=== PATIENT | female | born 1970 | race Caucasian/White ===

== ENCOUNTER 2016-08-12 11:49 | Outpatient (CLI) | payer OTHER ==
--- NOTE | 2016-08-13 17:33 | Mammography Report ---
DIGITAL SCREENING MAMMOGRAM: 08/12/2016 CLINICAL INDICATION: A 45-year-old with family history of breast cancer, for screening. COMPARISON: 04/2014, 01/2012, 10/2010. TECHNIQUE: Routine CC and MLO projections were obtained of the breasts. FINDINGS: The breasts again demonstrate heterogeneously dense fibroglandular parenchyma bilaterally. A few coarse, typically benign calcifications are present. No suspicious masses, clustered microcalc ifications, or regions of architectural distortion are identified. IMPRESSION: BENIGN FINDINGS. RECOMMENDATION: ROUTINE ANNUAL SCREENING UNLESS OTHERWISE CLINICALLY INDICATED. BIRADS CATEGORY 2-BENIGN FINDINGS. STANDARD QUALIFYING STATEMENTS 1. This examination was reviewed with the aid of Computer-Aided Detection (CAD). 2. A negative or benign imaging report should not delay biopsy if clinically suspicious findings are present. Consider surgical consultation if warranted. More than 5% of cancers are not identified by i maging. 3. Dense breasts may obscure an underlying neoplasm. JOB #: [id number] EXT JOB #:[id number]
== END 2016-08-12 11:50 | disposition home or self-care (01) ==
LOC: DI 11:49
PROVIDERS: ATTEND Physician Assistant Medical
DX: Z12.31 Encounter for screening mammogram for malignant neoplasm of breast (principal); Z80.3 Family history of malignant neoplasm of breast
CPT/HCPCS: 77067

== ENCOUNTER 2018-09-08 15:50 | Emergency (ER) | payer OTHER ==
--- NOTE | 2018-09-08 17:08 | XRAY Report ---
Reason: chest pain after wrestling Procedure Date: 09/08/2018 Accession Number: [id number] / [id number] Procedure: XR - Ribs w/PA Chest LT CPT Code: FULL RESULT: EXAM: LEFT RIB RADIOGRAPHY EXAM DATE: 09/08/2018 04:47 PM. CLINICAL HISTORY: Chest pain after wrestling. COMPARISON: None. TECHNIQUE: 1 view of the chest and 2 views of the ribs. FINDINGS: Bones: Normal. No fracture or bone lesion. Lungs: No focal opacities. No pneumothorax. No pleural effusions. Mediastinum: Heart and mediastinal contours are unremarkable. Other: None. IMPRESSION: No acute displaced rib fractures. No pneumothorax. RADIA
[2018-09-08] MEDS ORDERED: LIDOCAINE PATCH 5% TOP STA (17:19)
[2018-09-08] MEDS ORDERED: KETOROLAC 60 MG/2 ML VIAL IM STA (17:19)
--- NOTE | 2018-09-08 17:22 | ED Physician Documentation ---
History of Present Illness - Stated complaint Stated Complaint: L RIB PAIN - Chief complaint Chief Complaint: General - History obtained from History obtained from: Patient - History of Present Illness Timing: How many weeks ago (1) Severity Comments: moderate Quality: aching, sharp Radiates to: does not radiate Improved by: rest, remaining still Worsened by: deep breathing, movement, palpating Associated symptoms: denies sob, denies abdominal pain. No deformity or bruising - Treatment prior to arrival Treatment prior to arrival: ibuprofen yesterday - Additonal information Additional information: Pt reports she was wrestling with her son last week and elbowed herself in the chest/ribs. Reports still having pain a week later. Review of Systems Ten Systems: 10 systems reviewed and negative Constitutional: denies: Fever Cardiac: reports: Chest pain / pressure. 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 - Present Medications Home Medications: Ambulatory Orders Medication Instructions Recorded Confirmed Varenicline Tartrate [Chantix] 1 tab PO DAILY 08/19/13 08/19/13 Lidocaine Patch 5% [Lidoderm Patch] 1 patch TOP DAILY PRN #10 patch 09/08/18 - Allergies Allergies/Adverse Reactions: Allergies Allergy/AdvReac Type Severity Reaction Status Date / Time bupropion HCl * Allergy Unknown Verified 09/08/18 15:57 [From Wellbutrin] - Social History Does the pt smoke?: No Smoking Status: Former smoker Does the pt drink ETOH?: No Does the pt have substance abuse?: No - Immunizations Immunizations are current?: Yes - POLST Patient has POLST: Yes PD ED PE NORMAL - Vitals Vital signs reviewed: Yes - General General: Alert and oriented X 3, No acute distress, Well developed/nourished - HEENT HEENT: Atraumatic - Neck Neck: Supple, no meningeal sign - Cardiac Cardiac: RRR, No murmur, No gallop, No rub - Respiratory Respiratory: No respiratory distress, Clear bilaterally - Abdomen Abdomen: Soft, Non tender, Non distended - Female Female : Deferred - Rectal Rectal: Deferred - Derm Derm: Normal color, Warm and dry - Extremities Extremities: No deformity - Neuro Neuro: Alert and oriented X 3 Eye Opening: Spontaneous Motor: Obeys Commands Verbal: Oriented GCS Score: 15 - Psych Psych: Normal mood, Normal affect PD ED PE EXPANDED - Cardiac Cardiac: Chest wall TTP (left lateral chest wall, ribs) Results - Vitals Vitals: Vital Signs - 24 hr 09/08/18 15:54 Temperature 36 C L Heart Rate 88 Respiratory 18 Rate Blood Pressure 141/78 H O2 Saturation 97 Oxygen O2 Source Room air - Rads (name of study) Left rib/ cxr Radiology: Final report received (no acute disease or injury ) PD MEDICAL DECISION MAKING - ED course Complexity details: reviewed results, re-evaluated patient, considered differential, d/w patient ED course: ddx- chest wall contusion, chest strain, rib fracture, rib contusion, pneumothorax, hemothorax 47 y/o F with L chest wall pain persisting 1 week after hittting self in L chest wall while wrestling. Mild chest wall tenderness, normal breath sounds and otherwise normal exam, no abdominal pain or tenderness. Normal cxr and rib xray. Continue supportive care with ibuprofen, lidoderm patches and incentive spirometer to prevent pneumonia. Departure - Departure Disposition: 01 Home, Self Care Condition: Stable Record reviewed to determine appropriate education?: Yes Instructions: ED Contusion Chest Wall Follow-Up: Lauren Moser PA-C [Primary Care Provider] - Prescriptions: Lidocaine Patch 5% [Lidoderm Patch] 1 patch TOP DAILY PRN #10 patch PRN Reason: pain Comments: Your xray today was negative for any acute fracture
[2018-09-08 17:46] VITALS: BP 126/84
== END 2018-09-08 17:46 | disposition home or self-care (01) ==
LOC: ED 15:50
DX: Z87.891 Personal history of nicotine dependence (principal); X58.XXXA Exposure to other specified factors, initial encounter; Y93.89 Activity, other specified
CPT/HCPCS: 71101; 96372; 99283; 99284; A9270

== ENCOUNTER 2018-11-22 07:56 | Outpatient (CLI) | payer OTHER ==
[2018-11-22 08:31] LABS: BASOPHILS # (AUTO) 0.1 10^3/uL (0.0-0.1); BASOPHILS % (AUTO) 1.3 %; EOSINOPHILS # (AUTO) 0.3 10^3/uL (0.0-0.7); EOSINOPHILS % (AUTO) 3.8 %; LYMPHOCYTES # (AUTO) 2.2 10^3/uL (1.5-3.5); LYMPHOCYTES % (AUTO) 32.6 %; MEAN CORPUSCULAR HEMOGLOBIN 31.6 pg (27.0-31.0); MEAN CORPUSCULAR HGB CONC 33.7 g/dL (32.0-36.0); MEAN CORPUSCULAR VOLUME 93.9 fL (81.0-99.0); MONOCYTES # (AUTO) 0.7 10^3/uL (0.0-1.0); MONOCYTES % (AUTO) 9.5 %; NEUTROPHILS # (AUTO) 3.6 10^3/uL (1.5-6.6); NEUTROPHILS % (AUTO) 52.7 %; PLT - PLATELET COUNT 258 10^3/uL (130-450); RED BLOOD COUNT 4.11 10^6/uL (4.20-5.40); RED CELL DISTRIBUTION WIDTH 12.4 % (12.0-15.0); WHITE BLOOD COUNT 6.8 x10^3/uL (4.8-10.8)
[2018-11-22 08:59] LABS: ALBUMIN 4.1 g/dL (3.2-5.5); ALBUMIN/GLOBULIN RATIO 1.2 (1.0-2.2); ALKALINE PHOSPHATASE 57 IU/L (42-121); ALT ALANINE AMINOTRANSFERASE 18 IU/L (10-60); AST ASPARTATE AMINOTRANSFERASE 18 IU/L (10-42); BILIRUBIN,TOTAL 0.7 mg/dL (0.2-1.0); BUN - BLOOD UREA NITROGEN 13 mg/dL (6-20); CALCIUM 9.1 mg/dL (8.5-10.3); CARBON DIOXIDE - CO2 27 mmol/L (21-32); CHLORIDE 104 mmol/L (101-111); CHOL/HDL RATIO 2.8 (<4.4); CHOLESTEROL 186 mg/dL; CREATININE 0.7 mg/dL (0.4-1.0); GFR - MDRD 89 (>89); GLUCOSE 106 mg/dL (70-100); HDL CHOLESTEROL 66 mg/dL; LDL CHOLESTEROL,CALCULATED 110 mg/dL; LDL/HDL RATIO 1.7 (<4.4); SODIUM 140 mmol/L (135-145); TOTAL PROTEIN 7.4 g/dL (6.7-8.2); VLDL CHOLESTEROL 10 mg/dL
== END 2018-11-22 07:57 | disposition home or self-care (01) ==
LOC: LAB 07:56
PROVIDERS: ATTEND Physician Assistant Medical
DX: Z00.00 Encounter for general adult medical examination without abnormal findings (principal)
CPT/HCPCS: 36415; 80053; 80061; 83721; 84443; 85025

== ENCOUNTER 2019-11-28 13:16 | Emergency (ER) | payer BC, OTHER ==
[2019-11-28] MEDS ORDERED: ASPIRIN CHEW 81 MG TABLET PO STA (13:32)
--- NOTE | 2019-11-28 13:35 | ED Physician Documentation ---
PD HPI DYSPNEA - Stated complaint Stated Complaint: CHEST PX/SOA - Chief complaint Chief Complaint: Cardiac - History obtained from History obtained from: Patient - History of Present Illness Timing - onset: How many months ago (2) Timing - onset during: Light activity Timing - duration: Minutes (10) Timing - details: Gradual onset, Now resolved Inciting event(s): URI Improved by: Rest Worsened by: Exertion Associated symptoms: Cough, Chest pain / discomfort (left lateral). No: Fever, Wheezing Similar symptoms before: Has not had sx before Recently seen: Not recently seen - Additional information Additional information: 48-year-old female gives a history of sharp pains to the left side of her chest followed by a dull ache. She has pain with inspiration and pain with palpation to a specific area of her chest wall. She does not remember having prior injury to this area but she has had injury there previously. She does not remember injuring this recently. She does have concerns with exertional dyspnea that she feels have been been over the past 2 months where she is having to wait at the top of the stairs to catch her breath. Review of Systems Constitutional: denies: Fever Eyes: denies: Decreased vision Ears: denies: Ear pain Nose: reports: Congestion. denies: Rhinorrhea / runny nose Throat: denies: Sore throat Cardiac: reports: Chest pain / pressure. denies: Palpitations, Pedal edema, Calf pain Respiratory: reports: Dyspnea, Cough. 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 - Present Medications Home Medications: Ambulatory Orders Medication Instructions Recorded Confirmed Varenicline Tartrate [Chantix] 1 tab PO DAILY 08/19/13 08/19/13 Lidocaine Patch 5% [Lidoderm Patch] 1 patch TOP DAILY PRN #10 patch 09/08/18 Oxycodone HCl/Acetaminophen 1 - 2 each PO Q6H PRN #14 tablet 11/28/19 [Percocet 5-325 mg Tablet] - Allergies Allergies/Adverse Reactions: Allergies Allergy/AdvReac Type Severity Reaction Status Date / Time bupropion HCl * Allergy Unknown Verified 11/28/19 13:28 [From Wellbutrin] - Social History Does the pt smoke?: No Smoking Status: Former smoker Does the pt drink ETOH?: No Does the pt have substance abuse?: No - Immunizations Immunizations are current?: Yes - POLST Patient has POLST: Yes PD ED PE NORMAL - Vitals Vital signs reviewed: Yes (hypertensive ) - General General: Alert and oriented X 3, No acute distress, Well developed/nourished - HEENT HEENT: Atraumatic, PERRL, EOMI, Ears normal, Moist mucous membranes, Pharynx benign, Dentition benign - Neck Neck: Supple, no meningeal sign, No bony TTP - Cardiac Cardiac: RRR, No murmur - Respiratory Respiratory: No respiratory distress, Clear bilaterally, Other (There is specific left lateral chest wall point tenderness reproducing the symptoms the patient is having. 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, No motor deficit, No sensory deficit, Normal speech Eye Opening: Spontaneous Motor: Obeys Commands Verbal: Oriented GCS Score: 15 - Psych Psych: Normal mood, Normal affect Results - Vitals Vitals: Vital Signs - 24 hr 11/28/19 11/28/19 11/28/19 13:25 13:33 14:59 Temperature 36 C L 36.1 C L 36.2 C L Heart Rate 88 82 70 Respiratory 20 20 18 Rate Blood Pressure 168/74 H 162/54 H 145/80 H O2 Saturation 100 100 100 Oxygen O2 Source Room air - EKG (time done) 1327 Rate: Rate (enter#) (65) QRS: Low voltage Compare to prior EKG: Old EKG unavailable Computer interpretation: Agree with computer - Labs Labs: Laboratory Tests 11/28/19 11/28/19 11/28/19 13:50 13:50 13:50 WBC 8.7 RBC 4.52 Hgb 14.2 Hct 41.3 MCV 91.4 MCH 31.4 H MCHC 34.4 RDW 12.2 Plt Count 272 MPV 9.1 Neut # (Auto) 4.8 Lymph # (Auto) 2.6 Collier # (Auto) 1.0 Eos # (Auto) 0.3 Baso # (Auto) 0.1 Absolute Nucleated RBC 0.00 Nucleated RBC % 0.0 D-Dimer Sodium 136 Potassium 3.4 L Chloride 101 Carbon Dioxide 23 Anion Gap 12.0 BUN 12 Creatinine 0.7 Estimated GFR (MDRD) 89 Glucose 89 Calcium 9.3 Total Bilirubin 0.7 AST 19 ALT 26 Alkaline Phosphatase 66 Troponin I High Sens < 2.3 L Total Protein 8.0 Albumin 4.6 Globulin 3.4 Albumin/Globulin Ratio 1.4 Lipase 29 11/28/19 13:50 WBC RBC Hgb Hct MCV MCH MCHC RDW Plt Count MPV Neut # (Auto) Lymph # (Auto) Collier # (Auto) Eos # (Auto) Baso # (Auto) Absolute Nucleated RBC Nucleated RBC % D-Dimer < 200.0 L Sodium Potassium Chloride Carbon Dioxide Anion Gap BUN Creatinine Estimated GFR (MDRD) Glucose Calcium Total Bilirubin AST ALT Alkaline Phosphatase Troponin I High Sens Total Protein Albumin Globulin Albumin/Globulin Ratio Lipase - Rads (name of study) chest Radiology: Prelim report reviewed (Impression: No acute cardiopulmonary findings demonstrated) PD MEDICAL DECISION MAKING - ED course Complexity details: reviewed old records, reviewed results, re-evaluated patient, considered differential, d/w patient ED course: 48-year-old female with left chest wall pain has a negative cardiac work-up. She is administered IV saline, decadron and toradal. Departure - Departure Disposition: 01 Home, Self Care Clinical Impression: Chest wall pain Condition: Stable Instructions: ED Strain Chest Wall, ED Contusion Chest Wall Follow-Up: Lauren Moser PA-C [Primary Care Provider] - Prescriptions: Oxycodone HCl/Acetaminophen [Percocet 5-325 mg Tablet] 1 - 2 each PO Q6H PRN #14 tablet PRN Reason: pain
[2019-11-28 13:58] LABS: BASOPHILS # (AUTO) 0.1 10^3/uL (0.0-0.1); BASOPHILS % (AUTO) 0.8 %; EOSINOPHILS # (AUTO) 0.3 10^3/uL (0.0-0.7); EOSINOPHILS % (AUTO) 2.9 %; HGB - HEMOGLOBIN 14.2 g/dL (12.0-16.0); LYMPHOCYTES # (AUTO) 2.6 10^3/uL (1.5-3.5); LYMPHOCYTES % (AUTO) 29.5 %; MEAN CORPUSCULAR HEMOGLOBIN 31.4 pg (27.0-31.0); MEAN CORPUSCULAR HGB CONC 34.4 g/dL (32.0-36.0); MEAN CORPUSCULAR VOLUME 91.4 fL (81.0-99.0); MEAN PLATELET VOLUME 9.1 fL (7.9-10.8); MONOCYTES % (AUTO) 11.1 %; NEUTROPHILS # (AUTO) 4.8 10^3/uL (1.5-6.6); NEUTROPHILS % (AUTO) 55.5 %; PLT - PLATELET COUNT 272 10^3/uL (130-450); RED BLOOD COUNT 4.52 10^6/uL (4.20-5.40); RED CELL DISTRIBUTION WIDTH 12.2 % (12.0-15.0); WHITE BLOOD COUNT 8.7 x10^3/uL (4.8-10.8)
--- NOTE | 2019-11-28 14:07 | XRAY Report ---
PROCEDURE: Chest 1 View X-Ray INDICATIONS: Chest Pain TECHNIQUE: One view of the chest was acquired. COMPARISON: None FINDINGS: Surgical changes and devices: None. Lungs and pleura: No pleural effusions or pneumothorax. Lungs are clear. Mediastinum: Mediastinal contours appear normal. Heart size is normal. Bones and chest wall: No suspicious bony lesions. Overlying soft tissues appear unremarkable. IMPRESSION: No acute cardiopulmonary finding demonstrated. Reviewed by: Reji Gray MD on 11/28/2019 2:05 PM PDT Approved by: Reji Gray MD on 11/28/2019 2:05 PM PDT Station ID: [id number]
[2019-11-28 14:12] LABS: ALBUMIN 4.6 g/dL (3.2-5.5); ALBUMIN/GLOBULIN RATIO 1.4 (1.0-2.2); BILIRUBIN,TOTAL 0.7 mg/dL (0.2-1.0); CALCIUM 9.3 mg/dL (8.5-10.3); CREATININE 0.7 mg/dL (0.4-1.0)
[2019-11-28] MEDS ORDERED: SODIUM CHLORIDE 0.9% 1,000 ML IV STA (14:49)
[2019-11-28] MEDS ORDERED: KETOROLAC 30 MG/ML VIAL IVP STA (14:49)
[2019-11-28] MEDS ORDERED: DEXAMETHASONE 10 MG/ML VIAL IVP STA (14:49)
[2019-11-28 16:18] VITALS: BP 122/76
== END 2019-11-28 16:21 | disposition home or self-care (01) ==
LOC: ED 13:16
DX: R07.89 Other chest pain (principal); Z87.891 Personal history of nicotine dependence
CPT/HCPCS: 36415; 71045; 80053; 83690; 84484; 85025; 85379; 93005; 96361; 96374; 99284; A9270

== ENCOUNTER 2019-12-29 14:11 | Outpatient (CLI) | payer BC ==
[2019-12-29 18:32] LABS: BASOPHILS # (AUTO) 0.1 10^3/uL (0.0-0.1); EOSINOPHILS # (AUTO) 0.3 10^3/uL (0.0-0.7); EOSINOPHILS % (AUTO) 3.2 %; HGB - HEMOGLOBIN 14.5 g/dL (12.0-16.0); LYMPHOCYTES # (AUTO) 3.1 10^3/uL (1.5-3.5); LYMPHOCYTES % (AUTO) 29.7 %; MEAN CORPUSCULAR HEMOGLOBIN 30.9 pg (27.0-31.0); MEAN CORPUSCULAR HGB CONC 33.1 g/dL (32.0-36.0); MEAN CORPUSCULAR VOLUME 93.2 fL (81.0-99.0); MEAN PLATELET VOLUME 9.6 fL (7.9-10.8); MONOCYTES # (AUTO) 1.1 10^3/uL (0.0-1.0); MONOCYTES % (AUTO) 10.6 %; NEUTROPHILS # (AUTO) 5.8 10^3/uL (1.5-6.6); NEUTROPHILS % (AUTO) 55.3 %; PLT - PLATELET COUNT 304 10^3/uL (130-450); RED CELL DISTRIBUTION WIDTH 12.1 % (12.0-15.0); WHITE BLOOD COUNT 10.4 x10^3/uL (4.8-10.8)
[2019-12-29 18:55] LABS: ALBUMIN 4.5 g/dL (3.2-5.5); ALBUMIN/GLOBULIN RATIO 1.3 (1.0-2.2); BILIRUBIN,TOTAL 0.5 mg/dL (0.2-1.0); CALCIUM 9.8 mg/dL (8.5-10.3); CREATININE 0.6 mg/dL (0.4-1.0); TOTAL PROTEIN 7.9 g/dL (6.7-8.2)
== END 2019-12-29 23:59 | disposition home or self-care (01) ==
LOC: LAB.WCP 14:11
PROVIDERS: ATTEND Physician Assistant Medical
DX: K21.9 Gastro-esophageal reflux disease without esophagitis (principal)
CPT/HCPCS: 36415; 80053; 83690; 85025

== ENCOUNTER 2020-02-17 10:41 | Outpatient (CLI) | payer BC ==
--- NOTE | 2020-02-20 11:05 | Mammography Report ---
BILATERAL DIGITAL SCREENING MAMMOGRAM 3D/2D: 02/17/2020 CLINICAL: Family history of breast cancer. Routine screening. Comparison is made to exams dated: 08/12/2016 mammogram, 05/29/2014 mammogram, 02/03/2012 mammogram, mammogram, and 10/19/2009 mammogram - [facility]. There are scattered fibro glandular elements in both breasts. No significant masses, calcifications, or other findings are seen in either breast. There has been no significant interval change. IMPRESSION: NEGATIVE There is no mammographic evidence of malignancy. A 1 year screening mammogram is recommended. This exam was interpreted at Station ID: [id number]. NOTE: For mammograms, a report in lay terms will be sent to the patient. Approximately 15% of breast malignancies will not be visualized mammographically. In the management of a palpable breast mass, a negative mammogram must not discourage biopsy of a clinically suspicious lesion. Electronically Signed By: Gabrielle gordon/arnold:02/17/2020 16:51:03 ACR BI-RADS Category 1: Negative 3341F PARENCHYMAL PATTERN: (A) - The breast(s) demonstrate(s) scattered fibroglandular densities. BI-RADS CATEGORY: (1) - 1 RECOMMENDATION: (ANNUAL) - Recommend routine annual screening mammography. [id number] 1 year screening LATERALITY: (B)
== END 2020-02-17 10:42 | disposition home or self-care (01) ==
LOC: DI.N 10:41
DX: Z12.31 Encounter for screening mammogram for malignant neoplasm of breast (principal); Z80.3 Family history of malignant neoplasm of breast
CPT/HCPCS: 77067

== ENCOUNTER 2020-02-23 18:22 | Outpatient (CLI) | payer BC | END 2020-02-23 18:23 | disposition home or self-care (01) | LOC: COV 18:22 | PROVIDERS: ATTEND Internal Medicine Gastroenterology | DX: Z01.812 Encounter for preprocedural laboratory examination (principal); R12 Heartburn; Z12.11 Encounter for screening for malignant neoplasm of colon; Z20.828 Contact with and (suspected) exposure to other viral communicable diseases ==

== ENCOUNTER 2020-02-27 09:26 | Day surgery (SDC) | payer BC ==
[2020-02-27 09:53] LABS: HCG UR QUAL NEGATIVE
[2020-02-27] MEDS ORDERED: LACTATED RINGERS 1,000 ML IV ONE ×2 (10:20→11:50)
[2020-02-27] MEDS ORDERED: LIDO GARGLE 30 ML BOTTLE PO ONE (10:33)
[2020-02-27] MEDS ORDERED: BENZOCAINE/TETRACAINE/BUTAMBEN 20 GM TOP ONE (10:36)
[2020-02-27] MEDS ORDERED: LIDO GARGLE 30 ML BOTTLE ONE (10:37)
[2020-02-27] MEDS ORDERED: MIDAZOLAM 2 MG/2 ML VIAL ONE ×5 (10:39→11:25)
[2020-02-27] MEDS ORDERED: fentaNYL 250 MCG/5 ML VIAL ONE (10:40)
[2020-02-27] MEDS ORDERED: PROPOFOL 200 MG/20 ML VIAL IVP ONE (11:45)
[2020-02-27 12:21] VITALS: BP 103/73
--- NOTE | 2020-02-27 14:22 | ANESTHESIA POST OP EVALUATION ---
Anesthesia Post Eval - Post Anesthesia Eval Vitals: Last Vital Signs Temp 36.4 C L 02/27/20 12:20 Pulse 68 02/27/20 12:20 Resp 16 02/27/20 12:20 BP 103/73 02/27/20 12:20 Pulse Ox 94 02/27/20 12:20 CV Function Including HR & BP: positive: Stable Pain Control: positive: Satisfactory Nausea & Vomiting: positive: Negative Mental Status: positive: Baseline Respiratory Status: Airway Patent Hydration Status: Satisfactory Anesthesia Complications: positive: None
== END 2020-02-27 09:27 | disposition home or self-care (01) ==
LOC: SDS 09:26
PROVIDERS: ATTEND Internal Medicine Gastroenterology
PROC: 0DB68ZX Excision of Stomach, Via Natural or Artificial Opening Endoscopic, Diagnostic (ICD-10-PCS; 2020-02-27)
PROC: 0DB58ZX Excision of Esophagus, Via Natural or Artificial Opening Endoscopic, Diagnostic (ICD-10-PCS; 2020-02-27)
PROC: 0DJD8ZZ Inspection of Lower Intestinal Tract, Via Natural or Artificial Opening Endoscopic (ICD-10-PCS; principal; 2020-02-27 10:30)
PROC: 0DB98ZX Excision of Duodenum, Via Natural or Artificial Opening Endoscopic, Diagnostic (ICD-10-PCS; 2020-02-27 10:30)
DX: Z12.11 Encounter for screening for malignant neoplasm of colon (principal); R10.13 Epigastric pain; K29.50 Unspecified chronic gastritis without bleeding
CPT/HCPCS: 43239; 45378; 81025; A9270; J3010; J7120

== ENCOUNTER 2020-03-03 08:00 | Outpatient (CLI) | payer BC ==
[2020-03-03 16:22] LABS: H. PYLORIS ANTIGEN STL NEGATIVE (Negative)
== END 2020-03-03 23:59 | disposition home or self-care (01) ==
LOC: LAB.R 08:00
PROVIDERS: ATTEND Family Medicine
DX: R10.13 Epigastric pain (principal); K92.1 Melena
CPT/HCPCS: 82274; 87338

== ENCOUNTER 2020-06-19 07:19 | Emergency (ER) | payer BC ==
[2020-06-19] MEDS ORDERED: HYDROcod/ACETAM 5/325 MG TABLET PO STA (07:57)
[2020-06-19] MEDS ORDERED: KETOROLAC 60 MG/2 ML VIAL IM STA (07:57)
--- NOTE | 2020-06-19 09:00 | XRAY Report ---
PROCEDURE: Femur 2V RT INDICATIONS: fall/pain TECHNIQUE: 4 views of the femur were acquired. COMPARISON: None. FINDINGS: Bones: No fractures or dislocations. Mild the right hip and right knee joint osteoarthritic changes are seen. No evidence of avascular necrosis of femoral head. No suspicious bony lesions. Soft tissues: No suspicious soft tissue calcifications or masses. IMPRESSION: No acute right femur fracture or dislocation. Right hip and right knee joint osteoarthritis. Reviewed by: Kirill Salmeron MD on 06/19/2020 8:59 AM PDT Approved by: Kirill Salmeron MD on 06/19/2020 8:59 AM PDT Station ID: [id number]
--- NOTE | 2020-06-19 09:29 | ED Physician Documentation ---
PD HPI LOWER EXT INJURY - Stated complaint Stated Complaint: R LEG PX - Chief complaint Chief Complaint: Ext Problem - History obtained from History obtained from: Patient - Additional information Additional information: Patient comes emergency department chief complaint of posterior right thigh pain after slipping while getting out of the shower. Patient states that she did not fall all the way to the floor, but that her left leg slid out from under her and caused her to jerk and tense her right leg as she went down. Patient states she felt Popping, "zinging" feeling and had instant pain in her hamstrings area patient states that it hurts to make certain movements or to walk on it. No other injuries. No other complaints at this time. Incident happened this morning. No numbness or tingling in her feet. Review of Systems Ten Systems: 10 systems reviewed and negative Constitutional: reports: Reviewed and negative Eyes: reports: Reviewed and negative Ears: reports: Reviewed and negative Nose: reports: Reviewed and negative Throat: reports: Reviewed and negative Cardiac: reports: Reviewed and negative Respiratory: reports: Reviewed and negative GI: reports: Reviewed and negative : reports: Reviewed and negative Skin: reports: Reviewed and negative Musculoskeletal: reports: Extremity pain, Pain with weight bearing Neurologic: reports: Reviewed and negative Psychiatric: reports: Reviewed and negative Endocrine: reports: Reviewed and negative Immunocompromised: reports: Reviewed and negative PD PAST MEDICAL HISTORY - Past Medical History Past Medical History: Yes Cardiovascular: None Respiratory: None Neuro: None Endocrine/Autoimmune: None GI: GERD 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 : None HEENT: None Psych: Depression, Anxiety Musculoskeletal: Osteoarthritis Derm: None - Past Surgical History 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 - Present Medications Home Medications: Ambulatory Orders Medication Instructions Recorded Confirmed HYDROcod/ACETAM 5/325 [[place]ud[place] 5/325] 1 - 2 tablet PO Q6H PRN #8 tablet 06/19/20 Omeprazole Magnesium 20 mg PO DAILY 06/19/20 06/19/20 buPROPion HCL [Bupropion Xl] 150 mg PO DAILY 06/19/20 06/19/20 - Allergies Allergies/Adverse Reactions: Allergies Allergy/AdvReac Type Severity Reaction Status Date / Time bupropion HCl * Allergy Unknown Verified 06/19/20 07:36 [From Wellbutrin] - Social History Does the pt smoke?: No Smoking Status: Former smoker Does the pt drink ETOH?: No Does the pt have substance abuse?: No - Immunizations Immunizations are current?: Yes - POLST Patient has POLST: Yes PD ED PE NORMAL - Vitals Vital signs reviewed: Yes - General General: Alert and oriented X 3, Other (Patient cries and becomes distraught when her right leg is repositioned on the pillow.) - HEENT HEENT: Atraumatic, PERRL, EOMI, Moist mucous membranes - Neck Neck: Supple, no meningeal sign - Cardiac Cardiac: Strong equal pulses - Respiratory Respiratory: No respiratory distress - Abdomen Abdomen: Soft, Non tender, Non distended - Derm Derm: Normal color, Warm and dry, No rash - Extremities Extremities: No deformity, No edema, No calf tenderness / cord, Other (Tenderness palpation of her mid mid right hamstrings and proximally, subsiding at the mid buttock. No anterior tenderness palpation. No tenderness over hip or any aspect of the knee. Mildly limited passive range of motion, secondary to pain in hamstrings area. 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, No motor deficit, No sensory deficit, Normal speech - Psych Psych: Normal mood, Normal affect Results - Vitals Vitals: Vital Signs - 24 hr 06/19/20 06/19/20 07:30 08:32 Temperature 36.9 C Heart Rate 84 77 Respiratory 15 20 Rate Blood Pressure 132/74 H 120/80 O2 Saturation 100 96 Oxygen O2 Source Room air - Rads (name of study) R femur XR Radiology: Final report received, EMP read indepedently, See rad report (neg) PD MEDICAL DECISION MAKING - ED course Complexity details: reviewed results, re-evaluated patient, considered differential, d/w patient ED course: Hamstring strainI discussed with the patient that her symptoms are most consistent with. I have obtained an x-ray of her femur, which is unremarkable. The patient was treated symptomatically in the emergency department and found to be feeling better. I discussed with the patient that this injury will heal on its own, given time. We have discussed gentle range of motion exercises, stretches, and symptomatic treatment. We have discussed the need for follow-up and the usual indications for return. Departure - Departure Disposition: 01 Home, Self Care Clinical Impression: Hamstring strain Qualifiers: Encounter type: initial encounter Laterality: right Qualified Code(s): S76.311A - Strain of muscle, fascia and tendon of the posterior muscle group at thigh level, right thigh, initial encounter Condition: Stable Instructions: ED Strain Muscle Ext Prescriptions: HYDROcod/ACETAM 5/325 [Ludowici 5/325] 1 - 2 tablet PO Q6H PRN #8 tablet PRN Reason: Pain Comments: Your X-ray series looks good. There is no evidence of any broken bones. Your symptoms and findings are most consistent with hamstrings muscle strain, which will heal on its own over the the next several weeks. You may use the pain medication as needed. As we have discussed, please use ice, heat, stretching, and gentle range of motion exercises to help with pain, spasm, and stiffness. You should follow-up with your primary care physician as needed
[2020-06-19 09:31] VITALS: BP 111/97
== END 2020-06-19 09:40 | disposition home or self-care (01) ==
LOC: ED 07:19
DX: S76.311A Strain of muscle, fascia and tendon of the posterior muscle group at thigh level, right thigh, initial encounter (principal); X50.1XXA Overexertion from prolonged static or awkward postures, initial encounter; Y93.E1 Activity, personal bathing and showering; M17.11 Unilateral primary osteoarthritis, right knee; M16.11 Unilateral primary osteoarthritis, right hip; Z87.891 Personal history of nicotine dependence
CPT/HCPCS: 73552; 96372; 99283; 99284; A9270

== ENCOUNTER 2020-07-26 16:40 | Outpatient (CLI) | payer BC ==
--- NOTE | 2020-07-27 09:40 | XRAY Report ---
PROCEDURE: Knee 3 View LT INDICATIONS: KNEE PAIN, LEFT TECHNIQUE: 3 views of the left knee(s) were acquired. COMPARISON: None. FINDINGS: Bones: No fractures or dislocations. Mild tricompartmental osteoarthritis is seen more prominent in medial femoral tibial compartment. No suspicious bony lesions. Soft tissues: Small to moderate suprapatellar joint effusion is noted. No suspicious soft tissue calc ifications. IMPRESSION: Mild tricompartmental osteoarthritis more prominent in medial femoral tibial compartment . No fracture or dislocation. Small to moderate joint effusion. Reviewed by: Kirill Salmeron MD on 07/27/2020 9:39 AM PDT Approved by: Kirill Salmeron MD on 07/27/2020 9:39 AM PDT Station ID: [id number]
== END 2020-07-26 16:41 | disposition home or self-care (01) ==
LOC: DI.N 16:40
PROVIDERS: ATTEND Physician Assistant Medical
DX: M17.12 Unilateral primary osteoarthritis, left knee (principal); M25.462 Effusion, left knee

== ENCOUNTER 2021-01-10 08:00 | Outpatient (CLI) | payer BC ==
[2021-01-10 12:24] LABS: ALBUMIN 4.6 g/dL (3.2-5.5); ALBUMIN/GLOBULIN RATIO 1.4 (1.0-2.2); ALKALINE PHOSPHATASE 70 IU/L (42-121); ALT ALANINE AMINOTRANSFERASE 29 IU/L (10-60); AST ASPARTATE AMINOTRANSFERASE 18 IU/L (10-42); BILIRUBIN,TOTAL 0.9 mg/dL (0.2-1.0); BUN - BLOOD UREA NITROGEN 16 mg/dL (6-20); CALCIUM 9.7 mg/dL (8.5-10.3); CARBON DIOXIDE - CO2 28 mmol/L (21-32); CHLORIDE 102 mmol/L (101-111); CHOL/HDL RATIO 2.9 (<4.4); CHOLESTEROL 192 mg/dL; CREATININE 0.6 mg/dL (0.4-1.0); GFR - MDRD 105 (>89); GLUCOSE 112 mg/dL (70-100); HDL CHOLESTEROL 66 mg/dL; LDL CHOLESTEROL,CALCULATED 117 mg/dL; LDL/HDL RATIO 1.8 (<4.4); POTASSIUM 4.3 mmol/L (3.5-5.0); SODIUM 141 mmol/L (135-145); TOTAL PROTEIN 7.9 g/dL (6.7-8.2); TRIGLYCERIDES 46 mg/dL; VLDL CHOLESTEROL 9 mg/dL
[2021-01-10 12:30] LABS: BASOPHILS # (AUTO) 0.1 10^3/uL (0.0-0.1); BASOPHILS % (AUTO) 1.4 %; EOSINOPHILS # (AUTO) 0.2 10^3/uL (0.0-0.7); EOSINOPHILS % (AUTO) 2.6 %; HCT - HEMATOCRIT 43.2 % (37.0-47.0); HGB - HEMOGLOBIN 14.2 g/dL (12.0-16.0); LYMPHOCYTES # (AUTO) 1.8 10^3/uL (1.5-3.5); LYMPHOCYTES % (AUTO) 27.8 %; MEAN CORPUSCULAR HEMOGLOBIN 30.1 pg (27.0-31.0); MEAN CORPUSCULAR HGB CONC 32.9 g/dL (32.0-36.0); MEAN CORPUSCULAR VOLUME 91.7 fL (81.0-99.0); MEAN PLATELET VOLUME 9.7 fL (7.9-10.8); MONOCYTES # (AUTO) 0.8 10^3/uL (0.0-1.0); MONOCYTES % (AUTO) 11.5 %; NEUTROPHILS # (AUTO) 3.7 10^3/uL (1.5-6.6); NEUTROPHILS % (AUTO) 56.5 %; PLT - PLATELET COUNT 277 10^3/uL (130-450); RED BLOOD COUNT 4.71 10^6/uL (4.20-5.40); RED CELL DISTRIBUTION WIDTH 12.5 % (12.0-15.0); WHITE BLOOD COUNT 6.6 x10^3/uL (4.8-10.8)
[2021-01-10 12:34] LABS: THYROID STIMULATING HORMONE 0.76 uIU/mL (0.34-5.60)
== END 2021-01-10 23:59 | disposition home or self-care (01) ==
LOC: LAB.WCP 08:00
PROVIDERS: ATTEND Physician Assistant Medical
DX: Z00.00 Encounter for general adult medical examination without abnormal findings (principal)
CPT/HCPCS: 36415; 80053; 80061; 83721; 84443; 85025

== ENCOUNTER 2021-01-10 13:40 | Outpatient (CLI) | payer BC ==
--- NOTE | 2021-01-11 08:26 | Ultrasound Report ---
ULTRASOUND OF LEFT AXILLA: 01/10/2021 CLINICAL: Palpable left axilla lump. Comparison is made to exams dated: 02/17/2020 mammogram, 08/12/2016 mammogram, 05/29/2014 mammogram, 1 04/05/2011 mammogram, 11/18/2010 mammogram, and 10/19/2009 mammogram - [facility]. Color flow ultrasound of the left axilla was performed. Vickers scale images of the real-time examinat ion were reviewed. No significant abnormalities were seen sonographically in the left axilla. IMPRESSION: NEGATIVE There is no sonographic evidence of malignancy. Return to annual mammogram screening schedule is recommended. Future imaging is recommended as follo ws: 02/17/2021 screening mammogram. This exam was interpreted at Station ID: [id number]. Electronically Signed By: Reji Gray M.D., jr/arnold:01/10/2021 16:11:53 Ultrasound BI-RADS: 1 Negative BI-RADS CATEGORY: (1) - 1 Mammogram [id number] return to screening LATERALITY: (B)
== END 2021-01-10 13:41 | disposition home or self-care (01) ==
LOC: DI 13:40
PROVIDERS: ATTEND Family Medicine
DX: R22.2 Localized swelling, mass and lump, trunk (principal); Z00.00 Encounter for general adult medical examination without abnormal findings
CPT/HCPCS: 36415; 80053; 80061; 83721; 84443; 85025

== ENCOUNTER 2021-07-31 12:35 | Outpatient (CLI) | payer OTHER ==
--- NOTE | 2021-08-02 07:54 | Mammography Report ---
BILATERAL DIGITAL SCREENING MAMMOGRAM 3D/2D: 07/31/2021 CLINICAL: Family history of breast cancer. Routine screening. Comparison is made to exams dated: 01/10/2021 ultrasound, 02/17/2020 mammogram, 08/12/2016 mammogram, 05/29/2014 mammogram, 02/03/2012 mammogram, and 11/18/2010 mammogram - [facility]. T here are scattered fibroglandular elements in both breasts. No significant masses, calcifications, or other findings are seen in either breast. There has been no significant interval change. IMPRESSION: NEGATIVE There is no mammographic evidence of malignancy. A 1 year screening mammogram is recommended. This exam was interpreted at Station ID: [id number]. NOTE: For mammograms, a report in lay terms will be sent to the patient. Approximately 15% of breast malignancies will not be visualized mammographically. In the management of a palpable breast mass, a negative mammogram must not discourage biopsy of a clinically suspicious lesion. Electronically Signed By: Stevie Nicole acr/penrad:07/31/2021 16:07:12 ACR BI-RADS Category 1: Negative 3341F PARENCHYMAL PATTERN: (A) - The breast(s) demonstrate(s) scattered fibroglandular densities. BI-RADS CATEGORY: (1) - 1 RECOMMENDATION: (ANNUAL) - Recommend routine annual screening mammography. [id number] 1 year screening LATERALITY: (B)
== END 2021-07-31 12:36 | disposition home or self-care (01) ==
LOC: DI.N 12:35
PROVIDERS: ATTEND Internal Medicine
DX: Z12.31 Encounter for screening mammogram for malignant neoplasm of breast (principal); Z80.3 Family history of malignant neoplasm of breast

== ENCOUNTER 2022-07-01 07:59 | Outpatient (CLI) | payer OTHER ==
[2022-07-01 08:14] LABS: BASOPHILS # (AUTO) 0.1 10^3/uL (0.0-0.1); BASOPHILS % (AUTO) 1.3 %; EOSINOPHILS # (AUTO) 0.2 10^3/uL (0.0-0.7); EOSINOPHILS % (AUTO) 3.4 %; HCT - HEMATOCRIT 41.5 % (37.0-47.0); HGB - HEMOGLOBIN 13.6 g/dL (12.0-16.0); LYMPHOCYTES # (AUTO) 1.9 10^3/uL (1.5-3.5); LYMPHOCYTES % (AUTO) 30.7 %; MEAN CORPUSCULAR HEMOGLOBIN 29.3 pg (27.0-31.0); MEAN CORPUSCULAR HGB CONC 32.8 g/dL (32.0-36.0); MEAN CORPUSCULAR VOLUME 89.4 fL (81.0-99.0); MEAN PLATELET VOLUME 9.2 fL (7.9-10.8); MONOCYTES # (AUTO) 0.7 10^3/uL (0.0-1.0); MONOCYTES % (AUTO) 10.9 %; NEUTROPHILS # (AUTO) 3.3 10^3/uL (1.5-6.6); NEUTROPHILS % (AUTO) 53.5 %; PLT - PLATELET COUNT 268 10^3/uL (130-450); RED BLOOD COUNT 4.64 10^6/uL (4.20-5.40); RED CELL DISTRIBUTION WIDTH 12.9 % (12.0-15.0); WHITE BLOOD COUNT 6.2 x10^3/uL (4.8-10.8)
[2022-07-01 09:02] LABS: THYROID STIMULATING HORMONE 1.1 uIU/mL (0.34-5.60)
[2022-07-01 09:36] LABS: ALBUMIN/GLOBULIN RATIO 1.3 (1.0-2.2); ALKALINE PHOSPHATASE 62 IU/L (42-121); ALT ALANINE AMINOTRANSFERASE 38 IU/L (10-60); AST ASPARTATE AMINOTRANSFERASE 23 IU/L (10-42); BILIRUBIN,TOTAL 0.7 mg/dL (0.2-1.0); BUN - BLOOD UREA NITROGEN 15 mg/dL (6-20); CARBON DIOXIDE - CO2 26 mmol/L (21-32); CHLORIDE 107 mmol/L (101-111); CHOL/HDL RATIO 2.8 (<4.4); CHOLESTEROL 166 mg/dL; CREATININE 0.6 mg/dL (0.4-1.0); GFR - MDRD 105 (>89); GLUCOSE 109 mg/dL (70-100); HDL CHOLESTEROL 60 mg/dL; SODIUM 141 mmol/L (135-145); TOTAL PROTEIN 7.2 g/dL (6.7-8.2); TRIGLYCERIDES 29 mg/dL
== END 2022-07-01 08:00 | disposition home or self-care (01) ==
LOC: LAB 07:59
PROVIDERS: ATTEND Physician Assistant Medical
DX: Z00.00 Encounter for general adult medical examination without abnormal findings (principal); N91.2 Amenorrhea, unspecified
CPT/HCPCS: 36415; 80053; 80061; 83001; 83721; 84443; 85025

== ENCOUNTER 2022-07-07 08:27 | Outpatient (CLI) | payer OTHER ==
--- NOTE | 2022-07-07 10:39 | XRAY Report ---
PROCEDURE: Knee 3 View RT INDICATIONS: KNEE PAIN, RIGHT TECHNIQUE: 3 views of the right knee(s) were acquired. COMPARISON: None. FINDINGS: Bones: No fractures or dislocations. No suspicious bony lesions. Definite osteophytes and possibl e narrowing of joint space. This is tricompartmental. Soft tissues: Mild knee joint effusion. No suspicious soft tissue calcifications or masses. IMPRESSION: No acute bony abnormality. Tricompartmental Kellgren-Galindo scale of osteoarthritis: Grade 1-2: mild osteoarthritis. Reviewed by: Se Hancock on 07/07/2022 10:38 AM PDT Approved by: Se Hancock on 07/07/2022 10:38 AM PDT Station ID: [id number]
== END 2022-07-07 08:28 | disposition home or self-care (01) ==
LOC: DI 08:27
PROVIDERS: ATTEND Physician Assistant Medical
DX: M17.11 Unilateral primary osteoarthritis, right knee (principal)

== ENCOUNTER 2022-08-04 11:27 | Outpatient (CLI) | payer OTHER ==
--- NOTE | 2022-08-05 12:54 | Mammography Report ---
BILATERAL DIGITAL SCREENING MAMMOGRAM 3D/2D: 08/04/2022 CLINICAL: Family history of breast cancer. Routine screening. Comparison is made to exams dated: 07/31/2021 mammogram, 01/10/2021 ultrasound, 02/17/2020 mammogram, 08/12/2016 mammogram, 05/29/2014 mammogram, and 02/03/2012 mammogram - [facility]. Both breasts are heterogeneously dense, which may obscure small masses (category c / 51-75% glandular tissue). No significant masses, calcifications, or other findings are seen in either breast. There has been no significant interval change. IMPRESSION: NEGATIVE There is no mammographic evidence of malignancy. A 1 year screening mammogram is recommended. Based on Tyrer-Cuzick model (a risk assessment model), the patient's lifetime risk is 21.2% and her 1 0 year risk is 6.0%. If a patient has an elevated risk, a more comprehensive evaluation should be con sidered and/or a referral to a genetic counselor. The [employer], [employer], and NCCN Guidelines advise the consideration of Breast MRI as an adjunct to screening mammog kayla in patients whose "Lifetime risk to develop breast cancer" is 20% or higher. This exam was interpreted at Station ID: [id number]. NOTE: For mammograms, a report in lay terms will be sent to the patient. Approximately 15% of breast malignancies will not be visualized mammographically. In the management of a palpable breast mass, a negative mammogram must not discourage biopsy of a clinically suspicious lesion. Electronically Signed By: Tee murillo/arnold:08/04/2022 17:58:23 letter sent: No_Letter ACR BI-RADS Category 1: Negative 3341F PARENCHYMAL PATTERN: (D) - The breast(s) demonstrate(s) heterogeneously dense fibroglandular parleatha mabry. BI-RADS CATEGORY: (1) - 1 Mammogram [id number] 1 year screening LATERALITY: (B)
== END 2022-08-04 11:28 | disposition home or self-care (01) ==
LOC: DI.N 11:27
DX: Z12.31 Encounter for screening mammogram for malignant neoplasm of breast (principal); Z80.3 Family history of malignant neoplasm of breast

== ENCOUNTER 2023-07-20 10:08 | Outpatient (CLI) | payer OTHER ==
[2023-07-20 10:23] LABS: BASOPHILS # (AUTO) 0.1 10^3/uL (0.0-0.1); BASOPHILS % (AUTO) 1.1 %; EOSINOPHILS # (AUTO) 0.3 10^3/uL (0.0-0.7); EOSINOPHILS % (AUTO) 3.2 %; HCT - HEMATOCRIT 41.1 % (37.0-47.0); HGB - HEMOGLOBIN 13.8 g/dL (12.0-16.0); LYMPHOCYTES # (AUTO) 2.2 10^3/uL (1.5-3.5); LYMPHOCYTES % (AUTO) 27.3 %; MEAN CORPUSCULAR HEMOGLOBIN 30.6 pg (27.0-31.0); MEAN CORPUSCULAR HGB CONC 33.6 g/dL (32.0-36.0); MEAN CORPUSCULAR VOLUME 91.1 fL (81.0-99.0); MEAN PLATELET VOLUME 8.9 fL (7.9-10.8); MONOCYTES # (AUTO) 0.8 10^3/uL (0.0-1.0); MONOCYTES % (AUTO) 9.8 %; NEUTROPHILS # (AUTO) 4.8 10^3/uL (1.5-6.6); NEUTROPHILS % (AUTO) 58.4 %; PLT - PLATELET COUNT 267 10^3/uL (130-450); RED BLOOD COUNT 4.51 10^6/uL (4.20-5.40); RED CELL DISTRIBUTION WIDTH 12.8 % (12.0-15.0); WHITE BLOOD COUNT 8.2 x10^3/uL (4.8-10.8)
[2023-07-20 10:43] LABS: ALBUMIN 4.2 g/dL (3.2-5.5); ALBUMIN/GLOBULIN RATIO 1.5 (1.0-2.2); ALKALINE PHOSPHATASE 65 IU/L (42-121); ALT ALANINE AMINOTRANSFERASE 48 IU/L (10-60); AST ASPARTATE AMINOTRANSFERASE 25 IU/L (10-42); BILIRUBIN,TOTAL 0.6 mg/dL (0.2-1.0); BUN - BLOOD UREA NITROGEN 13 mg/dL (6-20); CALCIUM 9.5 mg/dL (8.5-10.3); CARBON DIOXIDE - CO2 30 mmol/L (21-32); CHLORIDE 106 mmol/L (101-111); CHOL/HDL RATIO 2.7 (<4.4); CHOLESTEROL 151 mg/dL; CREATININE 0.7 mg/dL (0.6-1.3); GFR - MDRD 87 (>89); GLUCOSE 110 mg/dL (74-104); HDL CHOLESTEROL 56 mg/dL; LDL CHOLESTEROL,CALCULATED 80 mg/dL; LDL/HDL RATIO 1.4 (<4.4); POTASSIUM 4.1 mmol/L (3.5-4.5); SODIUM 137 mmol/L (135-145); TRIGLYCERIDES 73 mg/dL (48-352); VLDL CHOLESTEROL 15 mg/dL
[2023-07-20 10:53] LABS: THYROID STIMULATING HORMONE 1.23 uIU/mL (0.34-5.60)
== END 2023-07-20 10:09 | disposition home or self-care (01) ==
LOC: LAB 10:08
PROVIDERS: ATTEND Physician Assistant Medical
DX: Z00.00 Encounter for general adult medical examination without abnormal findings (principal)
CPT/HCPCS: 36415; 80053; 80061; 83721; 84443; 85025